=== PATIENT | female | born 1980 | race Two or more races ===

== ENCOUNTER 2018-04-10 16:19 | Emergency (ER) | payer SELFPAY ==
[~2018-04-10] VITALS: Ht 162.6 cm; Wt 90.3 kg
[2018-04-10] MEDS ORDERED: IV NORMAL SALINE 1,000ML 1,000 ML IV ONE (17:00)
[2018-04-10 17:17] LABS: BASO % 0 % (0-3); EOS # 0.1 x10^3/uL (0.0-0.7); EOS % 1 % (0-3); HEMATOCRIT 43.9 % (36.0-47.0); HEMOGLOBIN 14.4 g/dL (12.0-15.5); LYMPH # 3.5 x10^3/uL (1.0-4.8); LYMPH % 30 % (24-48); MEAN CORPUSCULAR HEMOGLOBIN 28 pg (25-35); MEAN CORPUSCULAR HGB CONC 33 g/dL (31-37); MEAN CORPUSCULAR VOLUME 86 fL (79-100); MONO # 1.1 x10^3/uL (0.0-1.1); MONO % 9 % (0-9); NEUT % 60 % (31-73); PLATELET COUNT 299 x10^3/uL (140-400); RED BLOOD COUNT 5.12 x10^6/uL (3.50-5.40); WHITE BLOOD COUNT 11.7 x10^3/uL (4.0-11.0)
[2018-04-10 17:25] LABS: BILIRUBIN,URINE NEG (NEG); CLARITY,URINE CLEAR; COLOR,URINE YELLOW; GLUCOSE,URINE NEG (NEG)
[2018-04-10 17:26] LABS: BACTERIA,URINE FEW /HPF (0-FEW); NITRITE,URINE NEG (NEG); RBC,URINE OCC /HPF (0-2); SQUAMOUS EPITHELIAL CELL,UR MOD /LPF; U PREG PATIENT NEGATIVE (NEG); UROBILINOGEN,URINE 0.2 mg/dL (0.2 mg/dL)
[2018-04-10 17:30] LABS: ALBUMIN 3.9 g/dL (3.4-5.0); CALCIUM 8.9 mg/dL (8.5-10.1); CREATININE 1.1 mg/dL (0.6-1.0); GFR 55.9; TOTAL BILIRUBIN 0.3 mg/dL (0.2-1.0); TOTAL PROTEIN 7.7 g/dL (6.4-8.2)
[2018-04-10] MEDS ORDERED: ONDANSETRON PF 4 MG/2 ML VIAL. IV ONE ×2 (17:30→17:55)
--- NOTE | 2018-04-10 17:30 | PHYS DOC ---
Past History Past Medical History: Asthma (JESS MARTINEZ DO) Past Surgical History: Other (JESS MARTINEZ DO) Alcohol Use: None Drug Use: None (JESS MARTINEZ DO) Adult General Chief Complaint Chief Complaint: BACK PAIN OR INJURY [facility] HPI 38-year-old female with some chronic back issues presents with about a one-week history of mid back discomfort. She states over the last several days the pain has radiated around to her epigastric area and right upper quadrant. She states it also radiates to her right shoulder blade. She states she is recently had some nausea and vomiting. She does not think her symptoms are made worse with eating or drinking. She denies any fever chills or sweats. She denies any melena or hematemesis. She does state the pain in her back is worse with any movement. She has trouble standing because of the pain. She denies any trauma to that area.[] (JESS MARTINEZ DO) Review of Systems Review of Systems Constitutional: Denies fever or chills [] Eyes: Denies change in visual acuity, redness, or eye pain [] HENT: Denies nasal congestion or sore throat [] Respiratory: Denies cough or shortness of breath [] Cardiovascular: No additional information not addressed in HPI [] GI: Per history of present illness[] : Denies dysuria or hematuria [] Musculoskeletal: Per history of present illness[] Integument: Denies rash or skin lesions [] Neurologic: Denies headache, focal weakness or sensory changes [] Endocrine: Denies polyuria or polydipsia [] All other systems were reviewed and found to be within normal limits, except as documented in this note. (JESS MARTINEZ DO) Current Medications Current Medications Current Medications Medications (Trade) Dose Ordered Sig/Buster Start Time Stop Time Status Last Admin Dose Admin Fentanyl Citrate (Fentanyl 2ml Vial) 50 mcg 1X ONCE 04/10/18 17:30 04/10/18 17:31 UNV Ondansetron HCl (Zofran) 4 mg 1X ONCE 04/10/18 17:30 04/10/18 17:31 UNV Sodium Chloride 1,000 ml @ 1,000 mls/hr 1X ONCE 04/10/18 17:00 04/10/18 17:59 04/10/18 17:09 1,000 MLS/HR (JESS MARTINEZ DO) Allergies Allergies Allergies Coded Allergies Type Severity Reaction Last Updated Verified No Known Drug Allergies 04/10/18 No (JESS MARTINEZ DO) Physical Exam Physical Exam Constitutional: Well developed, well nourished, mild distress, non-toxic appearance. [] HENT: Normocephalic, atraumatic, bilateral external ears normal, oropharynx moist, no oral exudates, nose normal. [] Eyes: PERRLA, EOMI, conjunctiva normal, no discharge. [] Neck: Normal range of motion, no tenderness, supple, no stridor. [] Cardiovascular:Heart rate regular rhythm, no murmur [] Lungs & Thorax: Bilateral breath sounds clear to auscultation [] Abdomen: Mild epigastric tenderness no rebound or guarding negative Burnett sign[ ] Skin: Warm, dry, no erythema, no rash. [] Back: Midthoracic and upper lumbar paraspinal muscle spasm no midline vertebral tenderness[] Extremities: No tenderness, no cyanosis, no clubbing, ROM intact, no edema. [] Neurologic: Alert and oriented X 3, normal motor function, normal sensory function, no focal deficits noted. [] Psychologic: Anxious. [] (JESS MARTINEZ DO) Current Patient Data Vital Signs Vital Signs Date Time Temp Pulse Resp B/P (MAP) Pulse Ox O2 Delivery O2 Flow Rate FiO2 04/10/18 16:30 97.9 98 20 99 Room Air Lab Results Laboratory Tests Test 04/10/18 16:37 04/10/18 17:04 Urine Collection Type Unknown Urine Color Yellow Urine Clarity Clear Urine pH 5.0 Urine Specific [place] >=1.030 Urine Protein 30 mg/dl (NEG-TRACE) Urine Glucose (UA) Neg mg/dL (NEG) Urine Ketones (Stick) Trace mg/dL (NEG) Urine Blood Neg (NEG) Urine Nitrite Neg (NEG) Urine Bilirubin Neg (NEG) Urine Urobilinogen Dipstick 0.2 mg/dL (0.2 mg/dL) Urine Leukocyte Esterase Neg (NEG) Urine RBC Occ /HPF (0-2) Urine WBC 1-4 /HPF (0-4) Urine Squamous Epithelial Cells Mod /LPF Urine Bacteria Few /HPF (0-FEW) Urine Mucus Mod /LPF Urine Test Negative (NEG) White Blood Count 11.7 x10^3/uL (4.0-11.0) H Red Blood Count 5.12 x10^6/uL (3.50-5.40) Hemoglobin 14.4 g/dL (12.0-15.5) Hematocrit 43.9 % (36.0-47.0) Mean Corpuscular Volume 86 fL (79-100) Mean Corpuscular Hemoglobin 28 pg (25-35) Mean Corpuscular Hemoglobin Concent 33 g/dL (31-37) Red Cell Distribution Width 14.0 % (11.5-14.5) Platelet Count 299 x10^3/uL (140-400) Neutrophils (%) (Auto) 60 % (31-73) Lymphocytes (%) (Auto) 30 % (24-48) Monocytes (%) (Auto) 9 % (0-9) Eosinophils (%) (Auto) 1 % (0-3) Basophils (%) (Auto) 0 % (0-3) Neutrophils # (Auto) 7.0 x10^3uL (1.8-7.7) Lymphocytes # (Auto) 3.5 x10^3/uL (1.0-4.8) Monocytes # (Auto) 1.1 x10^3/uL (0.0-1.1) Eosinophils # (Auto) 0.1 x10^3/uL (0.0-0.7) Basophils # (Auto) 0.0 x10^3/uL (0.0-0.2) (JESS MARTINEZ DO) EKG EKG [] (JESS MARTINEZ DO) Radiology/Procedures Radiology/Procedures [] (JESS MARTINEZ DO) Impressions: Indication:RUQ PAIN, NAUSEA TECHNIQUE: Grayscale, color Doppler and spectral waveform is of the abdomen obtained. COMPARISON:None FINDINGS:Visualized pancreas is within normal limits. No gallstones, pericholecystic fluid or gallbladder wall thickening. IVC within normal limits. Liver measures 17 cm in longest dimension and is normal in size and echogenicity. Main portal vein is patent. Right kidney measures 11.3 cm in length without hydronephrosis. CBD measures 4 mm in diameter and is within normal limits. IMPRESSION: No cholelithiasis or sonographic evidence of acute cholecystitis. Electronically signed by: Suresh Shen DO (04/10/2018 6:17 PM) [facility] DICTATED AND SIGNED BY: SURESH SHEN DO DATE: 04/10/181815 CC: PCP,TEOFILO; JESS MARTINEZ DO (JHONY FRANCO DO) Course & Med Decision Making Course & Med Decision Making Pertinent Labs and Imaging studies reviewed. (See chart for details) [] (JESS MARTINEZ DO) Course & Med Decision Making Patient's labs are unremarkable. Her ultrasound is negative for gallstones or other gallbladder dysfunction. Liver appears normal. The patient's symptoms are most likely musculoskeletal back pain. I advised anti-inflammatories and follow up with her PCP if it persists for consideration of physical therapy. (JHONY FRANCO DO) Dragon Disclaimer Dragon Disclaimer This electronic medical record was generated, in whole or in part, using a voice recognition dictation system. (JESS MARTINEZ DO) Departure Departure: Impression: Primary Impression: Thoracic back pain Disposition: HOME, SELF-CARE Condition: STABLE Referrals: PCP,TEOFILO (PCP) Patient Instructions: Back Pain, Adult, [id number] Problem Qualifiers Primary Impression: Thoracic back pain Chronicity: acute Back pain laterality: midline Qualified Codes: M54.6 - Pain in thoracic spine JESS MARTINEZ DO Apr 10, 2018 17:30 JHONY FRANCO DO Apr 10, 2018 18:29
--- NOTE | 2018-04-10 18:20 | RAD ---
Indication:RUQ PAIN, NAUSEA TECHNIQUE: Grayscale, color Doppler and spectral waveform is of the abdomen obtained. COMPARISON:None FINDINGS:Visualized pancreas is within normal limits. No gallstones, pericholecystic fluid or gallbladder wall thickening. IVC within normal limits. Liver measures 17 cm in longest dimension and is normal in size and echogenicity. Main portal vein is patent. Right kidney measures 11.3 cm in length without hydronephrosis. CBD measures 4 mm in diameter and is within normal limits. IMPRESSION: No cholelithiasis or sonographic evidence of acute cholecystitis. Electronically signed by: Suresh Shen DO (04/10/2018 6:17 PM) [facility]
[2018-04-10 18:42] VITALS: BP 137/89
== END 2018-04-10 18:49 | disposition home or self-care (01) ==
LOC: ER 16:19
DX: M54.6 Pain in thoracic spine (principal); M54.5 Low back pain; G89.29 Other chronic pain; R11.2 Nausea with vomiting, unspecified; J45.909 Unspecified asthma, uncomplicated
CPT/HCPCS: 36415; 76705; 80053; 81001; 81025; 83690; 85025; 96361; 96374; 96375; 99284; J2405; J3010; J7030

== ENCOUNTER 2019-01-07 07:38 | Emergency (ER) | payer SELFPAY ==
[~2019-01-07] VITALS: Ht 162.6 cm; Wt 90.3 kg
[2019-01-07 08:19] VITALS: BP 131/95
[2019-01-07] MEDS ORDERED: DICL50TA4 PO (08:41)
[2019-01-07] MEDS ORDERED: METH4TAB2 PO (08:41)
[2019-01-07] MEDS ORDERED: CYCL-331 PO (08:41)
--- NOTE | 2019-01-07 08:42 | PHYS DOC ---
Past History Past Medical History: Asthma Past Surgical History: Other Alcohol Use: None Drug Use: None Adult General Chief Complaint Chief Complaint: HAND PROBLEM HPI HPI Patient is a 38-year-old female who presents with complaint of bilateral hand pain and swelling as well as left shoulder and neck pain that has been ongoing for quite some time. She states that the swelling in her hands is really been over the last couple of days and relates it to arthritis. She states that the left shoulder and neck is been going on for a few weeks. She states that a few weeks ago she thought she may have torn a muscle and had a bruise in her back for over a week but she states that is cleared up. She states that she has increase in pain in the area especially with working, stating that she does a lot of lifting at work, which requires lifting packages. She states that at times it is like a deep ache in the shoulder and at other times it is like a sharp and stabbing pain in at other times it is like a burning pain. She states that she feels like she is not able to go to work today because she will have to do a lot of lifting today.[] Review of Systems Review of Systems Constitutional: Denies fever or chills [] Respiratory: Denies cough or shortness of breath [] Cardiovascular: No additional information not addressed in HPI [] Musculoskeletal: Complains of bilateral hand, left shoulder and neck pain [] Integument: Denies rash or skin lesions [] Neurologic: Denies headache, focal weakness or sensory changes [] Allergies Allergies Allergies Coded Allergies Type Severity Reaction Last Updated Verified No Known Drug Allergies 04/10/18 No Physical Exam Physical Exam Constitutional: Well developed, well nourished, no acute distress, non-toxic appearance. [] Neck: Normal range of motion, there is tenderness to palpation in the left-sided cervical strap musculature with mild spasm noted. [] Cardiovascular: Regular rate and rhythm[] Lungs & Thorax: Bilateral breath sounds clear to auscultation [] Skin: Warm, dry, no erythema, no rash. [] Back: There is tenderness to palpation in the levator scapula on the left as well as the rhomboid muscles on the left with mild associated spasm. [] Extremities: Examination of left shoulder demonstrates some tenderness to palpation overlying the deltoid insertion and an area of the deltoid bursa. [] Neurologic: Alert and oriented X 3, no focal deficits noted. [] EKG EKG [] Radiology/Procedures Radiology/Procedures [] Course & Med Decision Making Course & Med Decision Making Pertinent Labs and Imaging studies reviewed. (See chart for details) [] Dragon Disclaimer Dragon Disclaimer This electronic medical record was generated, in whole or in part, using a voice recognition dictation system. Departure Departure: Impression: Primary Impression: Joint pain in both hands Additional Impressions: Shoulder bursitis Neck pain Disposition: HOME, SELF-CARE Condition: STABLE Referrals: PCP,NO (PCP) Patient Instructions: Arthralgia, Bursitis, Musculoskeletal Pain Scripts Cyclobenzaprine Hcl (CYCLOBENZAPRINE HCL) 10 Mg Tablet 1 TAB PO TID PRN for MUSCLE SPASMS, #30 TAB Prov: ANITA WANG Jr. DO 01/07/19 Diclofenac Sodium (DICLOFENAC SODIUM) 50 Mg Tablet.dr 1 TAB PO BID PRN for PAIN, #20 TAB Prov: ANITA WANG Jr. DO 01/07/19 Methylprednisolone (MEDROL) 4 Mg Tab.ds.pk 1 PKG PO UD for inflammation, #1 PKG Prov: ANITA WANG Jr. DO 01/07/19 Problem Qualifiers Additional Impressions: Shoulder bursitis Laterality: left Qualified Codes: M75.52 - Bursitis of left shoulder ANITA WANG Jr. DO Jan 07, 2019 08:42
== END 2019-01-07 08:50 | disposition home or self-care (01) ==
LOC: ER 07:38
DX: M75.52 Bursitis of left shoulder (principal); M79.641 Pain in right hand; M79.642 Pain in left hand; M54.2 Cervicalgia; J45.909 Unspecified asthma, uncomplicated
CPT/HCPCS: 99283

== ENCOUNTER 2019-02-06 09:35 | Emergency (ER) | payer SELFPAY ==
[~2019-02-06] VITALS: Ht 162.6 cm; Wt 81.5 kg
[~2019-02-06 09:35] MED LIST: CYCL-331 PO; DICL50TA4 PO; METH4TAB2 PO
[2019-02-06] MEDS ORDERED: DICL50TA4 PO (10:10)
--- NOTE | 2019-02-06 10:11 | PHYS DOC ---
Past History Past Medical History: Arthritis Past Surgical History: Other Alcohol Use: Rarely Drug Use: None Adult General Chief Complaint Chief Complaint: HAND PROBLEM HPI HPI Patient is a 38-year-old female who presents with complaint of bilateral hand pain that has been ongoing for quite some time. Patient was seen here about a month ago for the same complaint and was prescribed diclofenac and she states that was helping. She states that she ran out of that a few weeks ago. She denies any injuries to her hands.[] Review of Systems Review of Systems Constitutional: Denies fever or chills [] Respiratory: Denies cough or shortness of breath [] Cardiovascular: No additional information not addressed in HPI [] Musculoskeletal: Complains of bilateral hand pain [] Integument: Denies rash or skin lesions [] Allergies Allergies Allergies Coded Allergies Type Severity Reaction Last Updated Verified No Known Drug Allergies 04/10/18 No Physical Exam Physical Exam Constitutional: Well developed, well nourished, no acute distress, non-toxic appearance. [] Cardiovascular: Regular rate and rhythm[] Lungs & Thorax: Bilateral breath sounds clear to auscultation [] Skin: Warm, dry, no erythema, no rash. [] Extremities: Bilateral hands demonstrate mild soft tissue swelling with tenderness around the MCPs and PIPs. [] EKG EKG [] Radiology/Procedures Radiology/Procedures [] Course & Med Decision Making Course & Med Decision Making Pertinent Labs and Imaging studies reviewed. (See chart for details) [] Dragon Disclaimer Dragon Disclaimer This electronic medical record was generated, in whole or in part, using a voice recognition dictation system. Departure Departure: Impression: Primary Impression: Arthritis of both hands Disposition: 01 HOME, SELF-CARE Condition: STABLE Referrals: PCP,NO (PCP) Patient Instructions: Arthritis, Nonspecific, Form - Excuse from Work, School, or Physical Activity Scripts Diclofenac Sodium (DICLOFENAC SODIUM) 50 Mg Tablet. 1 TAB PO BID PRN for PAIN, #20 TAB Prov: ANITA WANG Jr. DO 02/06/19 ANITA WANG Jr. DO Feb 06, 2019 10:11
[2019-02-06 10:40] VITALS: BP 129/81
== END 2019-02-06 10:41 | disposition home or self-care (01) ==
LOC: ER 09:35
DX: M19.042 Primary osteoarthritis, left hand (principal); M19.041 Primary osteoarthritis, right hand
CPT/HCPCS: 99283